=== PATIENT | female | born 1940 | race Caucasian/White ===

== ENCOUNTER 2017-05-05 17:44 | Inpatient (IN) | payer BC, OTHER, MEDICARE ==
--- NOTE | 2017-05-05 18:15 | ERNOTE ---
Dyspnea - General Presenting Symptoms: shortness of breath Time Seen by Provider: 05/05/17 17:44 Source: patient - Immun/Allergies/Home Medications Allergies/Adverse Reactions: Allergies Sulfa (Sulfonamide Antibiotics) Allergy (Verified 05/05/17 18:35) Home Medications: HOME MEDICATIONS Levothyroxine Sodium [Synthroid] 125 mcg PO DAILY 05/05/17 [Last Taken Unknown] - History of Present Illness Narrative: Patient is coming from the clinic after being diagnosed with bilateral pulmonary embolisms. She has been short of breath for about two weeks with minimal exercise, no significant chest pain, slight cough. She was on a flight to [facility] and back a few days later, is being treated for bladder cancer. She was seen by Dr Zapata, had a CXR that was abnormal, CT chest showed bilateral PE with signs of pulmonary strain. Initiating event: Denies: upper resp illness Frequency of episodes: Denies: no prior episodes Modifying Factors - (Improves): Reports: rest Modifying Factors (Worsens): Reports: activity Associated Symptoms-Dyspnea: Reports: cough. Denies: fever/chills, sweating, ankle/leg swelling Prior Treatment: Reports: recently seen Review of Systems - Review of Systems Constitutional: Absent: recent illness ENT: Absent: nose congestion, sore throat Respiratory: Present: shortness of breath, cough Cardiology: Absent: chest pain Gastrointestinal/Abdominal: Absent: nausea, vomiting, abdominal pain Genitourinary: Present: no symptoms reported Musculoskeletal: Absent: back pain Neurological: Absent: headache - Patient's Past Medical History Patient History - Medical: Hypothyroidism Patient History - Cardiac/Respiratory: Pulmonary Embolism Patient History - Cancer: Bladder, Other - tongue Patient History - Surgical Procedures: Cancer Surgery - Social History Living Situations: home Smoking Status: Never smoker - Immunizations Immunizations Up to Date: Yes Hx Pneumococcal Vaccination: Yes History of Influenza Vaccine: Yes Physical Exam - Physical Exam General Appearance: Present: wd/wn, alert, no apparent distress Ears, Nose, Throat: Present: normal pharynx Respiratory: Present: no respiratory distress, normal breath sounds, no accessory muscle use, lungs clear Cardiovascular/Chest: Present: regular rate, rhythm, no murmur Extremity Exam: Present: normal inspection, no edema. Absent: calf tenderness Neurological Exam: Present: alert, oriented, normal mood/affect Skin Exam: Present: normal color, warm/dry ED Progress - Results and Orders Patient's Lab Results:: I have reviewed the patient's lab results. - Vital Signs Patient's Vital Signs:: I have reviewed the patient's vital signs. - Progress/Reassessment Progress Note-Subjective: 05/05/17 19:06 discussed test results and diagnosis with patient and family, family would like me to consult [facility] to discuss whether there would be any benefit in transfer 05/05/17 19:10 discussed with ERP at [facility] (Dr Forde) stated that they would not treat different then here ( with heparin, no indication for thrombolytics) 05/05/17 19:30 discussed with family at length, agreed with plan to stay here and continue IV heparin 05/05/17 19:43 discussed with Beti García (NRDouglas) okay to admit for observation Departure Clinical Impression: Bilateral pulmonary embolism - Departure Disposition: [facility] Condition: Stable
[2017-05-05 18:25] LABS: Prothrombin Time (Patient) 10.4 Seconds (9.4-11.4)
[2017-05-05 18:27] LABS: Partial Thrombolplastin Time 30.9 Seconds (24-32)
[2017-05-05 18:32] LABS: ALT 27 U/L (19-67); AST 17 U/L (0-48); Albumin * 4.3 gm/dl (3.4-5.0); Alkaline Phosphatase * 98 U/L (50-170); Anion Gap 11.4 mmol/L (6.8-13.8); BUN/Creatinine Ratio 33.3 (9.0-21.6); Bilirubin, Total 0.7 mg/dL (0.0-1.1); Blood Urea Nitrogen 22 mg/dL (3-23); Ca. Corrected For Albumin 8.7 mg/dL (8.4-10.2); Calcium * 9.3 mg/dL (7.9-10.9); Carbon Dioxide 31.1 mmol/L (24-32.6); Chloride 104 mmol/L (97-106); Glucose * 103 mg/dL (70-110); Potassium 4.5 mmol/L (3.4-4.6); Sodium 142 mmol/L (132-142); Total Protein 7.6 gm/dL (6.2-8.2); Troponin I Less than 0.017 ng/ml (0.00-0.10)
[2017-05-05] MEDS ORDERED: HEPARIN SODIUM,PORCINE 5,000 UNITS/ML VIAL IV ONE (19:09)
[2017-05-05] MEDS ORDERED: HEPARIN SODIUM,PORCINE 5,000 UNITS/ML VIAL ONE (19:11)
[2017-05-05] MEDS ORDERED: HEPARIN SODIUM,PORCINE/D5W 25,000 UNITS/500 ML BAG IV ONE (19:38)
[2017-05-05] MEDS: HEPARIN SODIUM,PORCINE/D5W 25,000 UNITS/500 ML BAG IV PRN (19:53)
--- NOTE | 2017-05-05 20:23 | HP ---
<RickyBeti - Last Filed: 05/06/17 04:48> Chief Complaint - Chief Complaint Date of Service: 05/05/17 Time of Service: 20:11 Chief Complaint: " SOB for 1 week". Source of HPI-Pt; reliable, ERP report. History of Present Illness: Mrs. Marinelli is a 77-yr-old [place] pt of Dr. Annie Zapata with a PMH of: Bladder Cancer, HLD, Hypothyroidism & Osteoporosis. Pt states that she has had worsening SOB for the last 1-2 weeks. She chose to see her PCP today and a D- dimer obtained was found to be elevated at 1.83. A follow-up with a CTA revealed she had Bilateral Pulmonary Embolism. The pt denies having the associated symptom of: fevers, chills, palpitations, chest pain, coughing up blood or syncope. She has had no recent surgery. She reports completing immunotherapy for her bladder ca 6 weeks ago. She will be admitted under observation status for remote telemetry monitoring, to ensure she remains hemodynamically stable & for anticoagulation treatment and determination of group home anticoag. therapy. - Patient's Past Medical History Patient History - Medical: Hypothyroidism Patient History - Cardiac/Respiratory: Pulmonary Embolism Patient History - Cancer: Bladder, Other - tongue Patient History - Surgical Procedures: Cancer Surgery Patient History - Other: None - Family History Mother Family History - Medical: , Diabetes Type 2 Insulin Dependent Family History - Cardiac/Respiratory: Hypertension Family History - Cancer: No pertinent family hx Father Family History - Medical: Family History - Cardiac/Respiratory: Hypertension Family History - Cancer: No pertinent family hx - Social History Living Situations: home Abuse History: No History of abuse Psych History: No pertinent hx Smoking Status: Never smoker Have you smoked in the past 12 months: No Do you dip or chew tobacco: No Alcohol Use: occasionally Drug Use: none - Immunizations Immunizations Up to Date: Yes Hx Pneumococcal Vaccination: Yes History of Influenza Vaccine: Yes Review Of Systems (GEN) - Review of Systems Generalized/Overall Review: Absent: Weakness, Chills, Fever, Malaise EENTM: Absent: Eye Pain, Blurred Vision, Double Vision Respiratory: Present: Shortness of Breath. Absent: Cough, Orthopnea, Stridor, Wheezing Cardiac: Absent: Chest Pain, Edema, Palpitations Abdominal: Absent: Nausea, Vomiting, Hematemesis, Abdominal Pain, Constipation, Diarrhea, Melena Genitourinary: Absent: Burning, Itching, Urgency, Frequency, Incontinent Musculoskeletal: Absent: Joint Pain, Back Pain, Joint Swelling Neurological: Absent: Headache, Anxiety, Depressed, Emotional Problems Skin: Absent: Dryness, Lesions, Lumps Endocrine: Present: Flushing. Absent: Intolerance to Cold, Intolerance to Heat , Increased Hunger, Increased Thirst Misc: All systems neg except as marked Immunizations: IMMUNIZATION HX Immunizations Up to Date Yes History of Influenza Vaccine Yes Hx Pneumococcal Vaccination Yes Allergies/Adverse Reactions: Allergies Allergy/AdvReac Type Severity Reaction Status Date / Time Sulfa (Sulfonamide Allergy Verified 05/05/17 18:35 Antibiotics) Home Medications: HOME MEDICATIONS Levothyroxine Sodium [Synthroid] 125 mcg PO DAILY 05/05/17 [Last Taken 05/05/17] Exam - Exam Vital Signs: Vital Signs - Last Taken Temp 36.7 C 05/05/17 18:26 Pulse 94 05/05/17 19:59 Resp 22 H 05/05/17 19:59 BP 138/93 05/05/17 19:59 Pulse Ox 96 05/05/17 19:59 Constitutional: Present: Alert, Oriented x3, Cooperative, No distress ENT Exam: Present: normal ENT inspection, dry mucous membranes Eye Exam: bilateral eye: normal inspection, PERRL Neck: Present: full range of motion, supple, normal inspection Back Exam: Present: no CVA tenderness Breasts: Present: Exam deferred Respiratory: Present: lungs clear, no accessory muscle use, No wheezing Cardiovascular/Chest: Present: normal peripheral pulses, regular rate, rhythm, no chest tenderness, no murmur Abdomen: Present: Normal bowel sounds, soft, nontender /Rectal: Present: Exam deferred Extremity: Present: normal range of motion, non-tender, normal inspection, no pedal edema Skin Exam: Present: warm/dry, no cyanosis Lymphatic: Present: no adenopathy Neurologic: Present: no motor/sensory deficits, alert, oriented x 3 Appearance: Present: appropriate appearance, appropriate insight Eye contact: Present: cooperative, good eye contact, normal speech Thoughts: Present: normal thought pattern, no apparent hallucination Diagnostic Studies: Laboratory Results PT 10.4 Seconds (9.4-11.4) 05/05/17 14:35 INR (Anticoag Therapy) 1.00 INR (0.90-1.10) 05/05/17 14:35 PTT ([place]) 30.9 Seconds (24-32) 05/05/17 14:35 Sodium 142 mmol/L (132-142) 05/05/17 14:35 Plasma Sodium 142 mmol/L (130-142) 05/05/17 14:35 Potassium 4.5 mmol/L (3.4-4.6) 05/05/17 14:35 Chloride 104 mmol/L (97-106) 05/05/17 14:35 Carbon Dioxide 31.1 mmol/L (24-32.6) 05/05/17 14:35 Anion Gap 11.4 mmol/L (6.8-13.8) 05/05/17 14:35 BUN 22 mg/dL (3-23) 05/05/17 14:35 Creatinine 0.66 mg/dL (0.4-1.4) 05/05/17 14:35 Est GFR (Non-Af Amer) 93 mL/min (60-130) 05/05/17 14:35 BUN/Creatinine Ratio 33.3 (9.0-21.6) H 05/05/17 14:35 Random Glucose 103 mg/dL (70-110) 05/05/17 14:35 Calcium 9.3 mg/dL (7.9-10.9) 05/05/17 14:35 Calcium Adj for Albumin 8.7 mg/dL (8.4-10.2) 05/05/17 14:35 Total Bilirubin 0.7 mg/dL (0.0-1.1) 05/05/17 14:35 AST 17 U/L (0-48) 05/05/17 14:35 ALT 27 U/L (19-67) 05/05/17 14:35 Alkaline Phosphatase 98 U/L (50-170) 05/05/17 14:35 Troponin I Less than 0.017 ng/ml (0.00-0.10) 05/05/17 14:35 Total Protein 7.6 gm/dL (6.2-8.2) 05/05/17 14:35 Albumin 4.3 gm/dl (3.4-5.0) 05/05/17 14:35 Assessment/Plan - Assessment/Plan (1) Bilateral pulmonary embolism Assessment: Pt is a 77-yr-old determined to have bilat. Pulmonary Embolism on CTA. The likely risk factors she has for pulmonary embolism include bladder cancer. 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 She will likely need extended anticoagulation (beyond 3-6 months) and should be considered an for an indefinite period or until cancer is cured. Will discuss VKA therapy over DOAC in her case. Will start her on Coumadin and continue bridging with LMWH such Lovenox for target INR of 2-3. Problem: Acute (2) Bladder cancer Assessment: Has been receiving bladder instillation with BCG by Urology at the [facility]. The last treatment was on 03/22/17. Problem: Acute (3) HLD (hyperlipidemia) Problem: Chronic (4) Hypothyroidism Problem: Chronic <Juan Issa - Last Filed: 05/06/17 19:47> History of Present Illness: This patient is very complicated. She has extensive bilateral pulmonary artery emboli within the distal arteries of both right and left MAIN pulmonary arteries which extend into the lobar and segmental arteries. This involves ALL lobers of the lungs (except for possibly the right middle lobe.) This has lead to right heart strain and pulmonary congestion. This is in conjuction with active bladder cancer still being actively treated. Her last treatment was March 22 of this year. Her family wishes her to be transferred for treatment to the [facility], but at the present time, no bed is available. Transfer will be accomplished as soon as able. I personally directed all of our nurse practitioner hospitalist care for this patient. Exam - Exam Vital Signs: Vital Signs - Last Taken Temp 36.6 C 05/06/17 15:21 Pulse 90 05/06/17 18:11 Resp 20 05/06/17 15:21 BP 140/71 05/06/17 15:21 Pulse Ox 92 05/06/17 15:21 Diagnostic Studies: Abnormal Lab Results 05/06/17 Range/Units 08:23 PTT ([place]) 57.4 H D (24-32) Seconds Laboratory Results PT 10.4 Seconds (9.4-11.4) 05/05/17 14:35 INR (Anticoag Therapy) 1.00 INR (0.90-1.10) 05/05/17 14:35 PTT ([place]) 57.4 Seconds (24-32) H D 05/06/17 08:23 Sodium 142 mmol/L (132-142) 05/05/17 14:35 Plasma Sodium 142 mmol/L (130-142) 05/05/17 14:35 Potassium 4.5 mmol/L (3.4-4.6) 05/05/17 14:35 Chloride 104 mmol/L (97-106) 05/05/17 14:35 Carbon Dioxide 31.1 mmol/L (24-32.6) 05/05/17 14:35 Anion Gap 11.4 mmol/L (6.8-13.8) 05/05/17 14:35 BUN 22 mg/dL (3-23) 05/05/17 14:35 Creatinine 0.66 mg/dL (0.4-1.4) 05/05/17 14:35 Est GFR (Non-Af Amer) 93 mL/min (60-130) 05/05/17 14:35 BUN/Creatinine Ratio 33.3 (9.0-21.6) H 05/05/17 14:35 Random Glucose 103 mg/dL (70-110) 05/05/17 14:35 Calcium 9.3 mg/dL (7.9-10.9) 05/05/17 14:35 Calcium Adj for Albumin 8.7 mg/dL (8.4-10.2) 05/05/17 14:35 Total Bilirubin 0.7 mg/dL (0.0-1.1) 05/05/17 14:35 AST 17 U/L (0-48) 05/05/17 14:35 ALT 27 U/L (19-67) 05/05/17 14:35 Alkaline Phosphatase 98 U/L (50-170) 05/05/17 14:35 Troponin I Less than 0.017 ng/ml (0.00-0.10) 05/05/17 14:35 Total Protein 7.6 gm/dL (6.2-8.2) 05/05/17 14:35 Albumin 4.3 gm/dl (3.4-5.0) 05/05/17 14:35
[2017-05-06] MEDS: ACETAMINOPHEN 325 MG TABLET PO PRN (04:19)
[2017-05-06] MEDS ORDERED: LEVOTHYROXINE SODIUM 125 MCG TABLET PO SCH (07:00)
--- NOTE | 2017-05-06 19:52 | PN ---
Subjective - Date and Time Seen Date: 05/06/17 Time: 19:47 Subjective Narrative: Slightly SOB, but minimally so. No pain. Family is present. Objective - Review of Systems Generalized/Overall Review: Reports: No Symptoms Reported EENTM: Reports: No Symptoms Reported Respiratory: Reports: Shortness of Breath - minimal Cardiac: Reports: No Symptoms Reported Abdominal: Reports: No Symptoms Reported Genitourinary Symptoms: Reports: No Symptoms Reported Musculoskeletal Complaints: Reports: No Symptoms Reported Neurological: Reports: No Symptoms Reported Skin: Reports: No Symptoms Reported Endocrine: Reports: No Symptoms Reported Misc: All systems neg except as marked - Vitals Vitals: Last Vital Signs Selected Entries 05/06/17 19:42 Temperature 36.8 C Temperature Oral Source Pulse Rate 92 Respiratory 20 Rate Blood Pressure 123/71 Blood Pressure Sitting Position O2 Sat by Pulse 92 Oximetry Oxygen Delivery Room Air Method - Abnormal Lab Findings Abnormal Lab Findings: Abnormal Lab Results 05/06/17 Range/Units 08:23 PTT ([place]) 57.4 H D (24-32) Seconds - Exam Constitutional: Present: Alert, Oriented x3, Cooperative, Well developed, Well nourished, No distress ENT Exam: Present: normal ENT inspection, hearing grossly normal Neck: Present: normal inspection Respiratory: Present: no respiratory distress Cardiovascular/Chest: Present: regular rate, rhythm Extremity: Present: no pedal edema Skin Exam: Present: normal color, warm/dry, no cyanosis Appearance: Present: appropriate appearance, appropriate insight, neat, no memory impairment Eye contact: Present: cooperative, good eye contact, normal speech Thoughts: Present: normal thought pattern Assessment/Plan Plan Narrative: I explained I had spoken with the triage doctor at the [facility] earlier today. They accept her in transfer but have no bed available. They will call us when they do have a bed available. It may be 2 or three days before this occurs. I talked about starting coumadin in addition to using IV heparin. The family wondered about the newer anticoagulants, and I discussed the pros an cons. After discussion, we decided on heparin alone. I also discussed that some cancers can increase the chance sometimes of having blood clots. - Problems/Diagnosis (1) Bilateral pulmonary embolism Problem: Acute (2) Bladder cancer Problem: Acute (3) HLD (hyperlipidemia) Problem: Chronic (4) Hypothyroidism Problem: Chronic
[2017-05-06] MEDS: HEPARIN SODIUM,PORCINE/D5W 25,000 UNITS/500 ML BAG IV PRN (20:23)
[2017-05-07] MEDS: ACETAMINOPHEN 325 MG TABLET PO PRN ×2 (00:38→22:07)
[2017-05-07 05:39] LABS: Hematocrit 42.2 % (37.0-47.0); Hemoglobin 14.4 gm/dL (12.5-16.0); Mean Cell Volume 89.6 fl (78-100); Mean Corpuscular Hemoglobin 30.6 pg (27-31); Mean Corpuscular Hgb Conc 34.1 g/dl (32-36); Mean Platelet Volume 9.1 fl (6.0-9.5); Neutrophil % 56.3 % (42-75.0); Platelet Count 218 K/mm3 (150-450); Red Blood Count 4.71 M/mm3 (4.2-5.4); Red Cell Distribution Width 11.9 % (11.5-14.0); White Blood Count 7.1 K/mm3 (4.0-10.5)
[2017-05-07 05:51] LABS: BUN/Creatinine Ratio 22.1 (9.0-21.6); Calcium * 8.8 mg/dL (7.9-10.9); Carbon Dioxide 26.8 mmol/L (24-32.6); Estimated Creat Clear 60.8; Potassium 3.8 mmol/L (3.4-4.6)
[2017-05-07] MEDS: LEVOTHYROXINE SODIUM 100 MCG TABLET PO SCH (06:44)
--- NOTE | 2017-05-07 07:18 | PN ---
<RickyBeti - Last Filed: 05/07/17 07:18> Subjective - Date and Time Seen Date: 05/07/17 Time: 07:18 Objective - Vitals Vitals: Last Vital Signs Temp 36.4 C L 05/07/17 06:09 Pulse 65 05/07/17 06:09 Resp 20 05/07/17 06:09 BP 124/57 05/07/17 06:09 Pulse Ox 91 05/07/17 06:09 - Abnormal Lab Findings Abnormal Lab Findings: Abnormal Lab Results 05/06/17 05/07/17 05/07/17 Range/Units 08:23 05:25 05:25 Eosinophils % 4.1 H (0.0-3.0) % PTT ([place]) 57.4 H D 73.8 H D (24-32) Seconds BUN/Creatinine Ratio (9.0-21.6) 05/07/17 Range/Units 05:25 Eosinophils % (0.0-3.0) % PTT ([place]) (24-32) Seconds BUN/Creatinine Ratio 22.1 H (9.0-21.6) Assessment/Plan - Problems/Diagnosis (1) Bilateral pulmonary embolism Problem: Acute (2) Bladder cancer Problem: Acute (3) HLD (hyperlipidemia) Problem: Chronic (4) Hypothyroidism Problem: Chronic <Reji Gillespie - Last Filed: 05/07/17 08:43> Subjective Subjective Narrative: Pt. complaint of left knee pain (posterior) but otherwise no other complaints. Family (Son - Jose Manuel and daughter - Priti) are bedside. Questions about treatment course and what should be done from here. Spent time talking about DVT's, PE's, issues (+/-) with various medications and we decided to do lovenox and pradaxa due to pradaxa has reversibility ( idarucixumab) now that others don't. She did state that she had some skipped beats at first but this doesn't seem to be persisting as much and is not assoc. with SOB. Objective - Review of Systems Generalized/Overall Review: Reports: No Symptoms Reported EENTM: Reports: No Symptoms Reported Respiratory: Reports: No Symptoms Reported Cardiac: Reports: No Symptoms Reported Abdominal: Reports: No Symptoms Reported Genitourinary Symptoms: Reports: No Symptoms Reported Musculoskeletal Complaints: Reports: Joint Pain - knee pain Neurological: Reports: No Symptoms Reported Skin: Reports: No Symptoms Reported Endocrine: Reports: No Symptoms Reported - Vitals Vitals: Last Vital Signs Temp 36.4 C L 05/07/17 06:09 Pulse 65 05/07/17 06:09 Resp 20 05/07/17 06:09 BP 124/57 05/07/17 06:09 Pulse Ox 91 05/07/17 06:09 - Abnormal Lab Findings Abnormal Lab Findings: Abnormal Lab Results 05/06/17 05/07/17 05/07/17 Range/Units 08:23 05:25 05:25 Eosinophils % 4.1 H (0.0-3.0) % PTT ([place]) 57.4 H D 73.8 H D (24-32) Seconds BUN/Creatinine Ratio (9.0-21.6) 05/07/17 Range/Units 05:25 Eosinophils % (0.0-3.0) % PTT ([place]) (24-32) Seconds BUN/Creatinine Ratio 22.1 H (9.0-21.6) - Exam Constitutional: Present: Alert, Oriented x3, Cooperative, No distress ENT Exam: Present: hearing grossly normal Neck: Present: supple Respiratory: Present: no respiratory distress, no accessory muscle use, rales - adam bases 1/2way up Cardiovascular/Chest: Present: no murmur, other - regularly irregular heartbeat. Abdomen: Present: Normal bowel sounds, soft, nontender Extremity: Present: no pedal edema, no calf tenderness, other - tenderness behind left knee ? cords. no femoral vein tenderness to palpation. Skin Exam: Present: normal color Lymphatic: Present: no adenopathy Neurologic: Present: normal mood/affect, oriented x 3 Appearance: Present: appropriate appearance, appropriate insight, neat Eye contact: Present: cooperative, good eye contact, normal speech Thoughts: Present: normal thought pattern, no apparent hallucination Assessment/Plan - Problems/Diagnosis (1) Bilateral pulmonary embolism Problem: Acute Narrative: Pt. is stable from a medical standpoint. Needs to be ambulated a distance to see if she has any oxygen needs while ambulating. Lungs do show extensive injury to them with rales adam 1/2way up, but she is in no distress at rest. will change to lovenox 1mg/kg bid and start pradaxa. (2) Bladder cancer Problem: Chronic Narrative: continue outpt care, though explained to pt. and family that she is at increased risk for clot development and therefore would recommend 6months of tx minimum. (3) Hypothyroidism Problem: Chronic Narrative: no changes at this time. (4) Discharge planning issues Problem: Acute Narrative: Patient and family were unsure of tx course to take after spending 30 minutes with them discussing what has happened, treatment options and what things to expect and watch for once discharged. It was decided to go with lovenox to bridge for 5 days and start pradaxa 150mg bid, intended tx duration of 6months. Also discussed with pt. movement every 2hrs, especially when traveling. Anticipate d/c in am.
[2017-05-07] MEDS ORDERED: DABIGATRAN ETEXILATE MESYLATE 150 MG CAPSULE PO SCH (09:00)
[2017-05-07] MEDS: ENOXAPARIN SODIUM 60 MG/0.6 ML SYRG SC SCH ×2 (10:12→19:55)
[2017-05-08] MEDS: ACETAMINOPHEN 325 MG TABLET PO PRN (06:20)
[2017-05-08] MEDS: LEVOTHYROXINE SODIUM 100 MCG TABLET PO SCH (06:20)
[2017-05-08] MEDS: ENOXAPARIN SODIUM 60 MG/0.6 ML SYRG SC SCH (09:11)
[2017-05-08 10:17] VITALS: BP 119/68
--- NOTE | 2017-05-08 10:28 | PN ---
Subjective - Date and Time Seen Date: 05/08/17 Time: 10:21 Subjective Narrative: Pt. without complaint of CP/SOB, but does complain of left knee pain. She believes she might have injured it a few days ago, but can't be sure. States pain is ok with tylenol, but is having trouble ambulating and putting wt. on it. Today she says it feels warm to touch. Objective - Review of Systems Generalized/Overall Review: Reports: No Symptoms Reported EENTM: Reports: No Symptoms Reported Respiratory: Reports: No Symptoms Reported Cardiac: Reports: No Symptoms Reported Abdominal: Reports: No Symptoms Reported Genitourinary Symptoms: Reports: No Symptoms Reported Musculoskeletal Complaints: Reports: Joint Pain - left knee Neurological: Reports: No Symptoms Reported Skin: Reports: No Symptoms Reported Endocrine: Reports: No Symptoms Reported - Vitals Vitals: Last Vital Signs Temp 36.4 C L 05/08/17 10:16 Pulse 75 05/08/17 10:16 Resp 20 05/08/17 10:16 BP 119/68 05/08/17 10:16 Pulse Ox 93 05/08/17 10:16 - EKG/Xray Findings EKG: NSR - Exam Constitutional: Present: Alert, Oriented x3, Cooperative, Mild distress ENT Exam: Present: hearing grossly normal Neck: Present: supple Respiratory: Present: no respiratory distress, no accessory muscle use, crackles - bibasilar 1/[address] up and finer today. Cardiovascular/Chest: Present: regular rate, rhythm, no edema, no murmur Abdomen: Present: Normal bowel sounds Extremity: Present: no pedal edema, no calf tenderness, swelling - of left knee with warmth and tenderness of the knee. no rubor Neurologic: Present: normal mood/affect, oriented x 3 Appearance: Present: appropriate appearance, appropriate insight, neat Eye contact: Present: cooperative, good eye contact, normal speech Thoughts: Present: normal thought pattern, no apparent hallucination Assessment/Plan - Problems/Diagnosis (1) Bilateral pulmonary embolism Problem: Acute Narrative: stable, continue lovenox bid x 3 more days, then start pradaxa 150mg bid (2) Bladder cancer Problem: Chronic (3) Hypothyroidism Problem: Chronic (4) Left knee pain Problem: Acute Qualifiers: Chronicity: acute Qualified Code(s): M25.562 - Pain in left knee Narrative: strain or possible MM tear or concern for possible hemarthrosis given acute pain and swelling and recent anticoagulation. will get xray, do ice to area, continue tylenol. Depending on xray will determine whether she can go home or if ortho may need to be involved. (5) Discharge planning issues Problem: Acute Narrative: depends on the knee tests to be sure she isn't developing an heme arthrosis.
[2017-05-08 10:57] LABS: Hematocrit 43.3 % (37.0-47.0); Hemoglobin 14.7 gm/dL (12.5-16.0); Mean Cell Volume 90.6 fl (78-100); Mean Corpuscular Hemoglobin 30.8 pg (27-31); Mean Corpuscular Hgb Conc 33.9 g/dl (32-36); Neutrophil # 6.2 K/mm3 (1.3-6.0); Neutrophil % 72.4 % (42-75.0); Platelet Count 216 K/mm3 (150-450); Red Blood Count 4.78 M/mm3 (4.2-5.4); Red Cell Distribution Width 12.1 % (11.5-14.0); White Blood Count 8.6 K/mm3 (4.0-10.5)
--- NOTE | 2017-05-08 12:23 | DS ---
(1) Bilateral pulmonary embolism Problem: Acute (2) Bladder cancer Problem: Chronic (3) Hypothyroidism Problem: Chronic (4) Left knee pain Problem: Acute Qualifiers: Chronicity: acute Qualified Code(s): M25.562 - Pain in left knee (5) Discharge planning issues Problem: Acute Description of Stay: Pt admitted for Dexter PE, being placed on heparin drip for 1.5 days and then converted to lovenox 60mg SC (1mg/kg/dose) BID (total of five days treated needed) after which she will be started on Pradaxa 150mg po bid. This was chosen as it has a reversible agent and coumadin would be too restrictive and cumbersome for her lifestyle. She did fine from a breathing/respiratory distress standpoint, but O2 sats remained in the low 90's during her stay. She was instructed to move legs when traveling and walk around if possible if > 1hr of travel time. Left knee pain: acute onset. She believes that this happened a few days prior to admission. Left knee was warm and swollen and tender to palpation with decreased ROM, but not red. Initially I thought the pain may be due to DVT, but it expanded into the whole knee from the popliteal region so xray was done which showed some loose FB in knee and a mild effusion, but CRP was 1.9 and CBC was normal, going against a hemearthrosis or joint infection. She may need ortho appt. after discharge to further assess or treat. Recommended tylenol and knee brace and ice for now. She was given a single dose of toradol prior to discharge. No other changes. Procedures Performed: none Discharge Disposition: Home self care Disposition: Home self-care Condition: Stable Discharge Activity: Activity as tolerated Discharge Diet: General/regular food Referrals: Annie Zapata MD [Staff Physician] - (within the week of discharge) Additional Patient Instructions (free text): Please make a TCM appointment ,at discharge, if applicable. Thank you! Ashly @ [facility] [id number]. Prescriptions (Any new or edited meds): Dabigatran Etexilate Mesylate [Pradaxa] 150 mg PO BID #60 capsule Enoxaparin Sodium [Lovenox] 60 mg SC Q12H #5 disp.syrin Complete Home Medications List: Complete Home Medication List: Levothyroxine Sodium [Synthroid] 125 mcg PO DAILY 05/05/17 Acetaminophen [Tylenol] 650 mg PO Q6H PRN tablet 05/08/17 Dabigatran Etexilate Mesylate [Pradaxa] 150 mg PO BID #60 capsule 05/08/17 Enoxaparin Sodium [Lovenox] 60 mg SC Q12H #5 disp.syrin 05/08/17
[2017-05-08] MEDS ORDERED: KETOROLAC TROMETHAMINE 30 MG/ML VIAL IM ONE (13:00)
== END 2017-05-08 13:05 | disposition home or self-care (01) | DRG 176 ==
LOC: ER 17:44 → MS 19:50 → OBSVTOIN 05-06 07:54
PROVIDERS: ADMIT Nurse Practitioner; ATTEND Family Medicine
DX: I26.99 Other pulmonary embolism without acute cor pulmonale (principal); C67.9 Malignant neoplasm of bladder, unspecified; I10 Essential (primary) hypertension; E03.9 Hypothyroidism, unspecified
CPT/HCPCS: 36415; 73562; 80048; 80053; 83880; 84484; 85025; 85610; 85730; 86140; 96374; 99283; G0378